=== PATIENT | male | born 1980 | race Caucasian/White ===

== ENCOUNTER 2016-05-15 16:25 | Emergency (ER) | payer OTHER ==
[~2016-05-15 16:25] MED LIST: BENZ2TAB7 PO; LOPE2TAB32 PO; OLAN5TAB PO; ONDA8TAB10 PO; PRAZ2CAP PO; SERT50TA9 PO; TRAZ-118 PO
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
[2016-05-15 16:44] VITALS: BP 142/88; PULSE 84; RESP 20; O2SAT 100
[2016-05-15] MEDS ORDERED: PRAZ2CAP2 PO (17:42)
[2016-05-15] MEDS ORDERED: TRAZ-118 PO (17:42)
[2016-05-15] MEDS ORDERED: SERT100T PO (17:42)
[2016-05-15] MEDS ORDERED: BENZ1TAB7 PO (17:42)
[2016-05-15] MEDS ORDERED: OLAN20TA16 PO (17:42)
== END 2016-05-15 18:46 | disposition home or self-care (01) ==
LOC: SED 16:25
DX: F43.0 Acute stress reaction (principal); F32.9 Major depressive disorder, single episode, unspecified; F17.200 Nicotine dependence, unspecified, uncomplicated

== ENCOUNTER 2016-10-26 21:07 | Emergency (ER) | payer OTHER ==
[~2016-10-26 21:07] MED LIST changes: +BENZ1TAB7 PO; +OLAN20TA16 PO; +PRAZ2CAP2 PO; +SERT100T PO
== END 2016-10-26 21:10 | disposition left against medical advice (07) ==
LOC: SED 21:07
DX: H92.22 Otorrhagia, left ear (principal); Z53.21 Procedure and treatment not carried out due to patient leaving prior to being seen by health care provider